=== PATIENT | female | born 1960 | race Caucasian/White ===

== ENCOUNTER 2024-10-05 21:10 | Day surgery (SDC) | payer OTHER, SELFPAY ==
[2024-10-05 14:11] VITALS: BP 165/97
--- NOTE | 2024-10-05 16:42 | ED.GENMED ---
History of Present Illness
General
Chief Complaint: Skin Problem
Source: patient
Exam Limitations: none
Time Seen by Provider: 10/05/24 16:23
History of Present Illness
History of Present Illness:
7 to 8 years ago, after the [place] [employer] when patient slipped and fell hitting her left buttock. She developed a hematoma at that time. Is always been there like a small softball but is never hurt. Never totally went away. Last 10 days
things have changed with increased swelling spreading of swelling, some low-grade fever and increasing pain.
Past History
Past History
ED Past Medical History: None
Review of Systems
Review of Systems
All Other Systems: Not applicable
Constitutional: Reports fever and chills
Respiratory: Reports no symptoms
Cardiac: Reports no symptoms
Phy Exam
Physical Exam
Physical Exam:
GENERAL: Alert and oriented in no apparent distress
EYE: Orbits normal.
CARDIAC: Regular rate and rhythm without any obvious murmurs.
LUNGS: Clear breath sounds,normal
ABDOMEN: Soft, without focal tenderness or distention
NEUROLOGICAL: Alert and oriented , grossly non-focal
SKIN: Warm and dry, very large swelling with erythema warmth. Small opening noted.
MUSCULOSKELETAL: No edema,no deformity.Good color
PSYCH: Normal and appropriate interaction.
Course
Orders/Labs/Results
Orders:
Orders
10/05/24 16:55
IV Insert/Care/Rem.- Treatment PRN
10/05/24 17:09
Basic Metabolic Panel Urgent
Complete Blood Count/With Diff Urgent
10/05/24 17:26
0.9% Sodium Chloride 1000 ml [Nss] 1,000 ml IV BOLUS
10/05/24 17:27
CeFAZolin 2 GRAM [Ancef] 2 grams in 10 ml IV NOW
10/05/24 17:28
CT Pelvis Angio W/wo Iv Contra Urgent
Comment:
Reason For Exam: Left buttock hematoma/abscess
10/05/24 18:21
Acetaminophen [Tylenol] 650 mg .ROUTE .STK-MED ONE
10/05/24 18:24
Acetaminophen [Tylenol] 650 mg PO NOW STA
Abnormal Lab Results
10/05/24
17:09
WBC 14.3 H 10^3/uL
(4.8-10.8)
RBC 3.63 L 10^6/uL
(4.20-5.40)
Hgb 11.2 L g/dL
(12.0-16.0)
Hct 33.7 L %
(37.0-47.0)
Plt Count 449 H 10^3/uL
(130-400)
Abs Immat Gran (auto) 0.1 H 10^3/uL
(0-0.05)
Absolute Neuts (auto) 11.2 H 10^3/uL
(1.4-6.5)
Absolute Monos (auto) 1.5 H 10^3/uL
(0.1-0.6)
Immature Gran % 0.8 H %
(0-0.5)
Neutrophils % 78.2 H %
(42.2-75.2)
Lymphocytes % 8.4 L %
(20.5-51.1)
Monocytes % 10.7 H %
(1.7-9.3)
Glucose 117 H mg/dl
(70-99)
10/05/24 17:09
10/05/24 17:09
Vital Signs
Initial and Last Documented VS:
Initial Vital Signs
Temp Pulse Resp BP Pulse Ox
98 F 96 16 165/97 98
10/05/24 14:11 10/05/24 14:11 10/05/24 14:11 10/05/24 14:11 10/05/24 14:11
Last Documented Vital Signs
Temp Pulse Resp BP Pulse Ox
98 F 81 16 140/81 98
10/05/24 14:11 10/05/24 19:47 10/05/24 19:47 10/05/24 19:47 10/05/24 19:47
MDM/Problems Addressed
Differential Diagnosis Includes:
Patient with a large abscess hematoma to the left buttock. Very large.. Some erythema warmth. Patient describing mild systemic symptoms.
Discussed with surgery multiple times. CT done and reviewed by surgery. Admit n.p.o. for impending surgery
*Radiology
Radiology exam reviewed: radiology read reviewed (Large buttock abscess)
*Pulse Oximetry
Patient hypoxic: no
*Critical Care Note
Total Time (30-74mins, 75-104mins- exclusive of procedures): Not Applicable
ED Attending Note
-
Portions of this chart may have been created with voice recognition software.� Occasional wrong word or��sound alike� substitutions may have occurred due to the inherent limitations of voice recognition software.
Discharge Plan
Departure
Patient Disposition: Admit
Date of Disposition: 10/05/24
Time of Disposition: 19:35
Presentation/result/management discussed w/ accepting MD/DO: Sumi
Discharge Problem:
Large buttock hematoma/abscess
Prescriptions:
No Action
acetaminophen [Tylenol Arthritis Pain] 650 mg Tablet Extended Release
1,300 mg PO Q8HPRN PRN (Reason: mild pain)
Referrals:
Thong Hermosillo MD [Family Provider] -
Interventions
Interventions:
*Risk Screen - Suicide Last Done: 10/05/24 14:11
*General Assessment Last Done: 10/05/24 18:19
*Neglect/Abuse Screening Last Done: 10/05/24 14:11
*ED- Fall Risk Assessment Last Done: 10/05/24 18:19
*ED COVID-19 Vaccine History Last Done: 10/05/24 18:19
ED-Skin Assessment Last Done: 10/05/24 18:19
Discharge Date and Time
Print Language: ISRAELI
[2024-10-05 17:37] LABS: Blood Urea Nitrogen 12 mg/dl (7-17); Calcium 8.9 mg/dl (8.4-10.2); Carbon Dioxide 27 mmol/L (22-30); Chloride 103 mmol/L (98-107); Glucose 117 mg/dl (70-99); Potassium 4.3 mmol/L (3.5-5.1); Sodium 140 mmol/L (135-145); eGFR > 60.00
[2024-10-05] MEDS: NSS 1000 IV ×2 (17:52→22:21)
[2024-10-05] MEDS: ANCEF 10 IV (17:52)
[2024-10-05 17:53] LABS: % Basophils 0.6 % (0-2); % Eosinophils 1.3 % (0-6); % Immature Granulocytes 0.8 % (0-0.5); % Lymphocytes 8.4 % (20.5-51.1); % Monocytes 10.7 % (1.7-9.3); % Neutrophils 78.2 % (42.2-75.2); Absolute Basophils 0.1 10^3/uL (0-0.2); Absolute Eosinophils 0.2 10^3/uL (0-0.7); Absolute Immature Granulocytes 0.1 10^3/uL (0-0.05); Absolute Lymphocytes 1.2 10^3/uL (1.2-3.4); Absolute Monocytes 1.5 10^3/uL (0.1-0.6); Absolute Neutrophils 11.2 10^3/uL (1.4-6.5); Hematocrit 33.7 % (37.0-47.0); Hemoglobin 11.2 g/dL (12.0-16.0); Mean Corp Hgb Conc. 33.2 g/dL (33.0-37.0); Mean Corpuscular Hgb 30.9 pg (27.0-31.0); Mean Corpuscular Volume 92.8 fL (81.0-99.0); Nucleated Red Blood Cells % 0 %; Platelet Count 449 10^3/uL (130-400); Red Blood Cell Count 3.63 10^6/uL (4.20-5.40); White Blood Cell Count 14.3 10^3/uL (4.8-10.8)
[2024-10-05] MEDS: TYLENOL 650 MG PO (18:24)
[2024-10-05 19:47] VITALS: BP 140/81
--- NOTE | 2024-10-05 20:58 | HPS.HSE ---
Addendum entered and electronically signed by Polo Bell MD 10/06/24 12:37:
I saw and examined the patient.
The Saxophone Player's note was reviewed and I agree with the note with the following additions/corrections.
Comment: 64F with a 7-8 year old left buttock hematoma that never resolved. Past two weeks she increased heat applications to try and resolve it, I suspect this led to the infection. Tender and erythematous on exam to left buttock with brown
purulent drainage. Low grade temps and leukocytosis noted. Plan for I&D in OR. D/w pt and . Informed consent obtained. Expected recovery and wound care needs also discussed. All ?s answered.
Original Note:
Family Physician
-
Family Physician: Thong Hermosillo MD
Chief Complaint
-
Skin problem
History of Present Illness
a 64 years old female with no PMH, present in ER with a complain of swelling, pain of LT buttock. Patient had a fall landed on her LT buttocks 7-8 years ago when she slipped after the [employer] bowl. She developed hematoma, felt like small soft
ball and been there since then with no pain associated. Last week, pain started while walking, increase of swelling and redness at the LT buttocks. Patient was seen outpatient for the same concern, ultrasound ordered and surgical consult was
scheduled in October. Patient came to ER as she developed fever, chills and increasing of LT buttock swelling and pain. Denies chest pain, sob, urinary symptoms, or any other symptoms. Patient is not receiving prescribed meds at home.
Medical History
Past Medical History
Past Medical History: Reports None
Past Surgical History: Reports Gynocological (D&C after miscarriage )
Social History
Tobacco: Non-smoker
Alcohol: Occasional
Drug: None
Personal:
Living: With Family
Employment: Employed
Family History
Family History: Not pertinent
Allergies / Home Medications
Allergies reflects when Allergies were last updated in [employer].
Home Medications with original date entered in [employer]
Allergy/Medication List:
Patient Allergies
Allergy/AdvReac Type Severity Reaction Status Date / Time
No Known Allergies Allergy Unverified 10/05/24 21:59
Home Medications Table - record
�Medication �Instructions �Recorded �Confirmed
acetaminophen 650 mg 1,300 mg PO Q8HPRN PRN mild pain 10/05/24 10/05/24
tablet,extended release (Tylenol
Arthritis Pain)
Review of Systems
-
A 12 point ROS was completed and negative except as noted: Yes
Constitutional: Reports No Symptoms
EENT: Reports No Symptoms
Respiratory: Reports No Symptoms
Cardiac: Reports No Symptoms
Abdomen/GI: Reports No Symptoms
Skin: Reports Other (Swelling, redness of LT buttocks )
Physical Exam
Vital Signs
Vital Signs
Temp Pulse Resp BP Pulse Ox
98 F 81 16 140/81 98
10/05/24 14:11 10/05/24 19:47 10/05/24 20:00 10/05/24 19:47 10/05/24 19:47
Physical Exam
General: No Apparent Distress
Respiratory: Clear
Cardiac: Regular Rhythm
GI: Soft and Non Tender
Musculoskeletal: No Edema
Skin: Other (LT buttocks with very large swelling erythema, painful to touch, small openings noted with pus/bloody drainage. )
Neuro: Awake and AO x 3
Laboratory Results
-
10/05/24 17:09
10/05/24 17:09
Data Reviewed
-
Lab Data: Discussed with Patient
Impression/Plan
-
CTA Pelvis shows
a large 18.8 x 11.6 x 17.8 cm centrally hypodense, loculated collection within the left gluteal soft tissues without evidence of active arterial extravasation. There is mild surrounding stranding and adjacent cutaneous thickening. This finding may
represent a large hematoma with however superimposed infection is also possible. Further evaluation with fluid sampling may be considered as clinically warranted.
WBC 14.3
IMPRESSION:
LT buttock Large hematoma/abscess
PLAN:
Admit/ observation/ med-surg (Dr. Jonas/ General surgery)
NPO
IVF
Abx
analgesics as needed
DVT Prophylaxis Lovenox
Code status Full code
[2024-10-05 22:04] VITALS: BMI 25.6
[2024-10-05 23:34] VITALS: BP 145/74
[2024-10-06] VITALS (12 sets, daily range): BP systolic 101–142; BP diastolic 54–81
[2024-10-06] MEDS: TYLENOL 650 MG PO ×2 (01:09→08:50)
[2024-10-06] MEDS: ANCEF 10 IV ×3 (04:08→17:00)
--- NOTE | 2024-10-06 09:18 | PTCARENOTE ---
Abscess to left buttock spontaneously started to drain. Copious amount of purulent, bloody drainage came out. A slow ooze continues, patient provided w/ mesh underwear and abd pad. Medicated w/ tylenol for fever of 100.8. Plan of care discussed.
--- NOTE | 2024-10-06 09:32 | CM ---
Patient seen bedside w/ spouse. Initial assessment completed. Patient is a 64 year old female with no PMH, present in ER with a complain of swelling, pain of LT buttock. Per patient, she is due to have surgery this admission.
Patient reports that she resides w/ spouse in a 4STH (finished basement and attic)- 4 steps to enter the home. Patient is independent w/ ambulating, no device required. Independent w/ ADLs, no DME identified. Denies SNF/HC hx.
Address, point of contact and insurance verified
PCP: Thong Hermosillo
Pharmacy: [facility] [place]
Patient is currently admitted as OBS. OOBS form verbally reviewed, patient given copy.
Plan: CM will cont to follow for d/c planning
--- NOTE | 2024-10-06 12:16 | W.IMMPOSTOP ---
Surgical Immed Post Op Note
-
Primary Surgeon: Arabella
Assisting: Shira MCLAUGHLIN
Pre-op Diagnosis: Left buttock abscess
Post-op Diagnosis: Same
Procedure Performed: Incision and drainage left buttock abscess
Anesthesia Type: MAC local
Specimen / Cultures: Cultures, aerobic and anaerobic, left buttock abscess
Estimated Blood Loss: 5cc
Complications: None immediate
Operative Findings: Approx 1L brown purulent drainage evacuated, existing draining puncta enlarged and 2 counter incisions created, 1/2 inch damien drains placed as draining setons
--- NOTE | 2024-10-06 12:18 | OR.RPT ---
Addendum entered and electronically signed by Polo eBll MD 10/06/24 14:47:
The assistance of Shira MCLAUGHLIN was required due to the complexity of the procedure. During the procedure she assisted with retraction, resection, and closure of the wound.
Original Note:
Operative Report
Operative Report
Primary Surgeon: Arabella
Assisting: Shira MCLAUGHLIN
Pre-op Diagnosis: Left buttock abscess
Post-op Diagnosis: Same
Procedure Performed: Incision and drainage left buttock abscess
Anesthesia Type: MAC local
Specimen / Cultures: Cultures, aerobic and anaerobic, left buttock abscess
Estimated Blood Loss: 5cc
Complications: None immediate
Operative Findings: Approx 1L brown purulent drainage evacuated, existing draining puncta enlarged and 2 counter incisions created, 1/2 inch damien drains placed as draining setonsPreoperative diagnosis: Umbilical hernia
Date of Surgery: 10/06/24
Indications: This 64F developed an infected hematoma of her left buttock. Incision and drainage was planned.
PROCEDURE: After informed consent was obtained, the patient was brought to the operative suite and placed in right lateral decubitus position on the operating table. The patient was sedated, prepped and draped in the usual sterile manner and an
adequate local anesthetic was administered using lidocaine 1% with epinephrine.
The existing draining puncta was enlarged and approximately one liter of brown thick creamy pus was evacuated. Cultures were obtained. Counter incisions were created lateral to this puncta in an area of denuded skin and at the superior most point of
the cavity. A 3L saline bag was used to irrigate the cavity with blunt digital debridement and disruption of loculations. The effluent ran clear by the end of the bag.
Hemostasis was obtained using Bovie electrocautery. Half inch damien drains were placed through the incisions and secured to themselves using 2-0 nylon suture in draining seton fashion. Abd pads were placed over the wounds and disposable underwear
was also placed.
The patient tolerated the procedure well and was taken to the PACU in stable condition.
[2024-10-06] MEDS: NSS 1000 IV ×2 (14:00→22:10)
[2024-10-06] MEDS: LOVENOX 40 MG SC (17:00)
[2024-10-07] MEDS: ANCEF 10 IV ×2 (01:46→10:37)
[2024-10-07 03:25] VITALS: BP 140/87
--- NOTE | 2024-10-07 06:14 | PTCARENOTE ---
Pt slept well overnight. Pt continues report pain at tolerable level and denies need for any pain medication. Left buttock dressing in place. IVF infusing as ordered. No issues to report. Will continue to monitor.
[2024-10-07 07:00] VITALS: BP 156/83
[2024-10-07 07:22] LABS: Hematocrit 26.9 % (37.0-47.0); Hemoglobin 9.1 g/dL (12.0-16.0); Mean Corp Hgb Conc. 33.8 g/dL (33.0-37.0); Mean Corpuscular Hgb 31.2 pg (27.0-31.0); Mean Corpuscular Volume 92.1 fL (81.0-99.0); Mean Platelet Volume 9.5 fL (7.4-10.4); Platelet Count 411 10^3/uL (130-400); Red Blood Cell Count 2.92 10^6/uL (4.20-5.40); Red Cell Dist. Width 13.2 % (11.5-14.5); White Blood Cell Count 14.7 10^3/uL (4.8-10.8)
[2024-10-07 11:00] VITALS: BP 146/85
--- NOTE | 2024-10-07 13:02 | W.PN.GS2 ---
Addendum entered and electronically signed by Polo Bell MD 10/08/24 11:10:
Addendum: level of care change placed in delayed fashion, intention was to make the patient PSR while she was in the hospital
Original Note:
Today's Communication / Plan
-
DC home
Assessment / Plan
-
64F POD1 s/p I&D left buttock abscess
AFVSS
Aerobic culture not captured, GS showed GPB
Anaerobic cx pending
WBC improved slightly
Clinically well
Plan:
DC home with 7 days augmentin
Wound care instructions provided
Subjective Data
-
Date of Service: October 07, 2024
AFVSS, ambulating, amy PO, pain controlled
Objective Data
-
Intake and Output
10/06/24 10/07/24 10/08/24
06:59 06:59 06:59
Intake Total 730 / 730 1440 / 1920 480 / 480
Balance 730 / 730 1440 / 1920 480 / 480
Intake:
Oral fluids 480 / 960 480 / 480
IV fluids (Total) 720 / 720 960 / 960
IV piggybacks
Other:
Number of approximated MODERATE 2
amounts of urine
How many times incontinent 2
MODERATE amount urine
Vital Signs
Temp Pulse Resp BP Pulse Ox
98.3 F 89 18 146/85 100
10/07/24 11:00 10/07/24 11:00 10/07/24 11:00 10/07/24 11:00 10/07/24 11:00
Lab Results
10/07/24 07:06
10/05/24 17:09
Calcium 8.9 mg/dl (8.4-10.2) 04/14/25 17:09
Physical Exam
-
Gen: NAD
Rectal: left buttock wounds cdi with ss drainage
Patient has a mcnulty catheter: No
Patient has a central line: No
--- NOTE | 2024-10-07 13:07 | W.DS.TRANS ---
DC Summary - Fork Lift Technician
-
Discharge Instructions:
Instructions:
Stand-Alone Forms:
Changes to Home Medications: No
Discharge Medications:
DC Medications w/original date entered in [employer]
acetaminophen 650 mg tablet,extended release (Tylenol Arthritis Pain) 1,300 mg PO Q8HPRN PRN mild pain 10/05/24
Home Medication Changes
Pending Results: No
--- NOTE | 2024-10-07 14:15 | CM ---
Chart reviewed and patient is for discharge to home
Plan; Home no needs.
== END 2024-10-07 14:48 | disposition home or self-care (01) ==
LOC: SDS 21:10
PROVIDERS: Emergency Medicine; Surgery; ATTENDING PHYSICIAN Surgery; FAMILY PHYSICIAN Internal Medicine
DX: L02.31 Cutaneous abscess of buttock (principal); S30.0XXA Contusion of lower back and pelvis, initial encounter; W01.0XXA Fall on same level from slipping, tripping and stumbling without subsequent striking against object, initial encounter
CPT/HCPCS: 10060; 72191; 80048; 85025; 85027; 87075; 87205; 96361; 96374; 99285; Q9967